=== PATIENT | male | born 1945 | race Caucasian/White ===

== ENCOUNTER → 2024-01-19 06:21 | Day surgery (SDC) | payer OTHER, SELFPAY | LOC: GI 06:21 | PROVIDERS: ATTENDING PHYSICIAN Internal Medicine; FAMILY PHYSICIAN Internal Medicine | DX: Z12.11 Encounter for screening for malignant neoplasm of colon (principal); K64.8 Other hemorrhoids; K57.30 Diverticulosis of large intestine without perforation or abscess without bleeding; K62.1 Rectal polyp; K63.5 Polyp of colon; K63.89 Other specified diseases of intestine; R12 Heartburn; K44.9 Diaphragmatic hernia without obstruction or gangrene; K22.89 Other specified disease of esophagus; K31.7 Polyp of stomach and duodenum; K31.89 Other diseases of stomach and duodenum; K21.00 Gastro-esophageal reflux disease with esophagitis, without bleeding; K29.50 Unspecified chronic gastritis without bleeding; Z86.0100 Personal history of colon polyps, unspecified | CPT/HCPCS: 45385; 45381; 45380; 43239; 88305; 88342 ==

== ENCOUNTER → 2024-05-01 13:16 | Outpatient (REF) | payer OTHER, SELFPAY | LOC: HWRAD 13:16 | PROVIDERS: ATTENDING PHYSICIAN Family Medicine; REFERRING PHYSICIAN Internal Medicine | DX: Z13.820 Encounter for screening for osteoporosis (principal); Z82.62 Family history of osteoporosis; M85.88 Other specified disorders of bone density and structure, other site | CPT/HCPCS: 77080 ==

== ENCOUNTER → 2024-07-26 09:52 | Outpatient (REF) | payer OTHER, SELFPAY | LOC: RST 09:52 | PROVIDERS: ATTENDING PHYSICIAN Internal Medicine; FAMILY PHYSICIAN Internal Medicine | DX: R19.8 Other specified symptoms and signs involving the digestive system and abdomen (principal) | CPT/HCPCS: 74230; 92611 ==

== ENCOUNTER → 2024-08-10 09:50 | Outpatient (REF) | payer OTHER, SELFPAY | LOC: RAD 09:50 | PROVIDERS: ATTENDING PHYSICIAN Internal Medicine; FAMILY PHYSICIAN Internal Medicine | DX: R10.13 Epigastric pain (principal) | CPT/HCPCS: 76700; 93975 ==

== ENCOUNTER 2025-03-10 21:34 | Observation (INO) | payer OTHER, SELFPAY ==
[2025-03-10 18:54] VITALS: BP 143/85
[2025-03-10 19:01] LABS: Glucose - Point of Care 101 mg/dl (70-99)
[2025-03-10 19:11] VITALS: BP 149/85
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
[2025-03-10 19:30] VITALS: BMI 25.1
[2025-03-10 19:34] LABS: Glucose - Point of Care 101 mg/dl (70-99)
[2025-03-10 19:36] LABS: Hematocrit 42.1 % (39.0-52.0); Hemoglobin 14.3 g/dL (13.0-18.0); Mean Corp Hgb Conc. 34.0 g/dL (33.0-37.0); Mean Corpuscular Volume 90.5 fL (80.0-94.0); Nucleated Red Blood Cells % 0 % (-); Platelet Count 293 10^3/uL (130-400); Red Cell Dist. Width 13.3 % (11.5-14.5)
[2025-03-10 19:45] LABS: INR 1.04; PT 13.7 Sec (11.4-14.6)
[2025-03-10 19:58] LABS: ALT (SGPT) 20 U/L (0-50); AST (SGOT) 28 U/L (17-59); Albumin 4.6 g/dl (3.5-5.0); Alkaline Phosphatase 92 U/L (38-126); Blood Urea Nitrogen 24 mg/dl (9-20); Calcium 9.5 mg/dl (8.4-10.2); Carbon Dioxide 28 mmol/L (22-30); Chloride 102 mmol/L (98-107); Estimated Creatinine Clearance 48 ml/min; Glucose 103 mg/dl (70-99); Potassium 4.2 mmol/L (3.5-5.1); Sodium 137 mmol/L (135-145); Total Protein 7.3 g/dl (6.3-8.2); eGFR 55.88
[2025-03-10 20:10] LABS: Troponin I < 0.012 ng/ml
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
[2025-03-10 21:44] LABS: Urine Character Clear (Clear)
[2025-03-10 21:54] LABS: Urine Red Blood Cell 0-2 /HPF (0-2); Urine Squamous Cell 0-2 /LPF (Few)
[2025-03-10 21:55] LABS: Urine White Cell 0-2 /HPF (0-5)
[2025-03-11] VITALS (11 sets, daily range): BP systolic 106–147; BP diastolic 55–86; BMI 25.0
[2025-03-11] MEDS: LIPITOR PO (02:13)
[2025-03-11 06:46] LABS: Hematocrit 40.1 % (39.0-52.0); Hemoglobin 13.7 g/dL (13.0-18.0); Mean Corp Hgb Conc. 34.2 g/dL (33.0-37.0); Mean Corpuscular Volume 90.3 fL (80.0-94.0); Platelet Count 256 10^3/uL (130-400); Red Cell Dist. Width 13.4 % (11.5-14.5)
[2025-03-11 07:09] LABS: Blood Urea Nitrogen 16 mg/dl (9-20); Calcium 7.9 mg/dl (8.4-10.2); Carbon Dioxide 23 mmol/L (22-30); Chloride 104 mmol/L (98-107); Estimated Creatinine Clearance 77 ml/min; Glucose 92 mg/dl (70-99); HDL Cholesterol 48 mg/dl; LDL Cholesterol, Calculated 69 mg/dl; Potassium 3.6 mmol/L (3.5-5.1); Sodium 135 mmol/L (135-145); Very Low Density Lipoprotein 15 mg/dl (0-30); eGFR > 60.00
[2025-03-11 08:53] LABS: Glycohemoglobin (HgbA1c) 5.8 % (4.0-5.9)
--- NOTE | 2025-03-11 09:16 | CON.NEURO ---
Addendum entered and electronically signed by Yovany Roldan MD 03/11/25 10:38:
Atorvastatin 40 mg, as ordered, also OK for choice for statin.
Original Note:
Neuro Assessment/Plan
Assessment
Ervin Stafford is a 80 yo M PMH HLD, migraines with visual aura, and prostate cancer, presenting with anterograde amnesia. He describes symptoms as about 4 hours of short-term memory loss, with otherwise no focal deficits or seizure-like activity.
On arrival he was back to his neurological baseline, with normal exam this AM (intact attention, alertness, speech, memory, orientation) . NCHCT and CTA without acute pathology.
Overall, highest on the differential is transient global amnesia (TGA), a period of transient memory loss with risk factors including migraine, primarily occurring in older adults, with characteristic hippocampal lesions on MRI. There is mixed
consensus if TGA is caused by vascular etiology (therefore presenting increased risk of stroke), however overall this has not been definitively proven. Alternative proposed TGA etiologies include venous congestion, migraines, and epileptic
phenomena. Alternatively, symptoms could be considered moderate risk TIA with ACBD2 score of 4 (assuming negative MRI). MRI will be useful in further evaluation, however would favor empirically treating with ASA 81 mg pending further evaluation.
Differential also includes seizure, which should be evaluated with EEG. If evidence of epileptiform discharges, would start empiric anti-seizure therapy, otherwise hold for now.
Plan
- START aspirin 81 mg daily
- continue simvastatin 20 mg (LDL <70 on recent check)
- BP goal normotension
- obtain MRI brain without contrast
- obtain EEG
- further evaluation pending above
Consultation
Order
Date of Consultation: 03/11/25
Requesting Provider: Aureliano
Reason for Consult: Amnesia
Subjective/Objective
Subjective Data
Date of Service: March 11, 2025
Ervin Stafford is a 80 yo M PMH HLD, migraines with visual aura, and prostate cancer, presenting with amnesia.
His last known well was 1729 on the day of arrival (03/10). Prior to that, he had his typical AM routine - working out, showering, and other typical tasks. At 1730, he became acutely confused with anterograde amnesia. He asked his 'who put up
the [place] lights' (despite personally putting them up) and forget that it was [place] time. He has no memory of the next 2-3 hours. He reports that his otherwise denied noting any convulsive activity, oral/manual automatisms, lip
smacking, eyeblinking etc, and was awake, alert and performing normal tasks. He denies substance use including cannabis; reports drinking 1 glass of wine the night prior, which is similar to his typical routine. Only new medication is a creatine
supplement.
Due to persistent symptoms, he presented to the ED (notably gave his wrong directions to the hospital). He reports he next remembers being in the CT scanner.
In terms of epilepsy risk factors, he reports normal , manager local development, denies febrile seizures, prior strokes, intracranial bleeds, tumors, neurosurgical procedures, meningitis/encephalitis, concussions/TBI, etc. He has a history
of stroke in his father, however no history of seizures. He denies ever having an episode like this before.
In terms of his migraines, he reports childhood onset of migraines with visual aura. He describes symptoms as headache preceded by visual aura 'twinkling/sparkling [place]cent [place]' that obscures his vision, primarily on the right side but occasionally
throughout his vision. His headaches have completely resolved recently, although he still continues to have isolated visual aura, more recently occurring 3 times by 2 days around 02/13. He denies headache or visual symptoms during the
amnestic episode.
Objective Data
Vital Signs
Temp Pulse Resp BP Pulse Ox
36.6 C 70 18 147/86 95
03/10/25 18:54 03/11/25 07:00 03/10/25 20:45 03/11/25 07:00 03/11/25 07:00
Lab Results
03/11/25 06:35
03/11/25 06:35
PT 13.7 Sec (11.4-14.6) 03/10/25 19:28
INR 1.04 03/10/25 19:28
Sodium 135 mmol/L (135-145) 03/11/25 06:35
Potassium 3.6 mmol/L (3.5-5.1) 03/11/25 06:35
BUN 16 mg/dl (9-20) 03/11/25 06:35
Glucose 92 mg/dl (70-99) 03/11/25 06:35
Calcium 7.9 mg/dl (8.4-10.2) L D 03/11/25 06:35
LDL Cholesterol, Calc 69 mg/dl 03/11/25 06:35
Hgb A1c 5.8
Patient Allergies
No Known Allergies Allergy (Verified 06/06/12 08:04)
NCHCT (03/10/25, personally reviewed) No acute intracranial abnormality.
CTAH&N (03/10/25, personally reviewed) No CTA evidence for high-grade stenosis or occlusion of the [place] or the arterial vasculature in the neck.
LDL Level: <70, continue statin
CVA Assessment
Onset of Stroke Symptoms
Date of onset of symptoms: 03/10/25
Time of onset of symptoms: 17:30
Date last time pt seen normal: 03/10/25
Time last time pt seen normal: 17:29
NIH Stroke Score
Level of Consciousness: 0 - Alert
LOC Questions: 0-Answers both correctly
LOC Commands: 0-Performs both correctly
Best Horizontal Gaze: 0-Normal
Visual [place]: 0=Normal, no visual loss
Facial Palsy: 0=Normal, symmetrical
Motor - Right Arm: 0=No drift 10 seconds
Motor - Left Arm: 0=No drift 10 seconds
Motor - Right Le-No drift 5 seconds
Motor - Left Le-No drift 5 seconds
Limb Ataxia: 0-Absent
Sensation: 0-Normal
Best Language: 0-No aphasia
Dysarthria: 0-Normal
Extinction and Inattention: 0-No abnormality
NIH Total Score:: 0
Tenecteplase Contraindications
Inclusion and Exclusion criteria reviewed: Yes (Not a candidate due to minor, resolved deficit )
IAT Contraindications: Imaging doesn't show large vessel occlusion as cause of stroke
Past History
Past Medical / Surgical History
Past Medical History: Other (HLD, prostate cancer, migraines with aura )
Social History
Tobacco: Non-smoker
Alcohol: Occasional
Drug: None
Living: with family
Employment: Retired
Family History
Family History: Stroke
Review of Systems
-
All other systems: Reviewed and negative
Physical Exam
-
Awake, alert, oriented to person, place, and time
Follows 1- and 2-step axial and appendicular and axial commands
Able to state days of the week forwards and backwards
Remembers 3/3 words in 5 mintues
CN II-XII intact
Intact strength and sensation bilaterally
No ataxia on FNF
No sensory neglect
Data Reviewed
-
CT-A: Report Reviewed and Image Reviewed
CT Head: Report Reviewed and Image Reviewed
Labs: Report Reviewed
Lipid Profile: Report Reviewed
Medications
-
Active Medications
Generic Name Dose Route Start Last Admin
Trade Name Freq PRN Reason Stop Dose Admin
Acetaminophen 650 mg 03/11/25 02:10
Acetaminophen 325 Mg Tablet PO 04/08/25 02:09
Q4HPRN PRN
mild pain/ROSE/temp> 100.4F
Aspirin 81 mg 03/11/25 08:00
Aspirin 81 Mg Chewable Tablet PO 04/08/25 07:59
DAILY PATRICIO
Atorvastatin Calcium 40 mg 03/11/25 02:15 03/11/25 02:13
Atorvastatin (Lipitor) 40 Mg Tablet PO 04/08/25 02:14 Not Given
QPM PATRICIO
Bisacodyl 10 mg 03/11/25 02:10
Bisacodyl 10 Mg Rectal Suppository RECTAL 04/08/25 02:09
[id number] PRN
constipation
Pantoprazole Sodium 40 mg 03/11/25 08:00
Pantoprazole 40 Mg Delayed Release Tablet PO 04/08/25 07:59
DAILY PATRICIO
Polyethylene Glycol 17 grams 03/11/25 02:10
Polyethylene Glycol Powder 17 Grams Packet PO 04/08/25 02:09
DAILYPRN PRN
constipation
Senna/Docusate Sodium 1 tablet 03/11/25 02:10
Docusate W/Senna ([place]-Colace) Tablet PO 04/08/25 02:09
BIDPRN PRN
constipation
Home Medications
�Medication �Instructions �Recorded
omeprazole 20 mg capsule,delayed 20 mg PO DAILY 02/05/11
release (Prilosec)
simvastatin 20 mg tablet 20 mg PO QPM 02/05/11
[2025-03-11] MEDS: TYLENOL 650 MG PO (10:28)
[2025-03-11] MEDS: PROTONIX 40 MG PO (10:28)
[2025-03-11] MEDS: LOW STRENGTH ASPIRIN 81 MG PO (10:28)
--- NOTE | 2025-03-11 10:58 | EDCM ---
Chart reviewed. Cm attempted to talk with pt at ED bedside to complete IA but was not able
LVM with Shahnaz [phone]
--- NOTE | 2025-03-11 17:38 | W.PN.HOSP.TC ---
Today's Communication/Plan
-
MRI brain, EEG
Assessment / Plan
Assessment / Plan
80M with HLD, ocular migraines p/w confusion episode.
Acute confusional state�resolved
Possible transient global amnesia. Rule out toxic metabolic encephalopathy, TIA, migraine.
CTh, CT HN and R WNL
Leukocytosis resolved, UA negative, no evidence of any infection
MRI brain pending
Neuro consult, discussed with Dr. Roldan, EEG ordered and pending
HLD
Statin
Mild hypocalcemia
Calcium supplement
GERD
PPI
DVT PPx
SCDs/ambulation
Anticipated Discharge: Within 24 hours
Subjective/Interval History
-
Date of Service: March 11, 2025
Patient feeling well, denies any acute issues. He has no weakness was able to ambulate to bathroom and back, no vision issues. He does not remember what happened between getting out of the shower and waking up in CT scan. He denies recent illness
or any prodromal symptoms or any recent lightheadedness.
Objective Data
-
Labs:
Laboratory Results
03/11/25
06:35
WBC 6.8
Hgb 13.7
Hct 40.1
Plt Count 256
Sodium 135
Potassium 3.6
Chloride 104
Carbon Dioxide 23
BUN 16
Creatinine 0.8
Glucose 92
Calcium 7.9 L D
Vital Signs:
Vital Signs
Temp Pulse Resp BP Pulse Ox
98.7 F 71 16 113/65 97
03/11/25 15:55 03/11/25 15:55 03/11/25 15:55 03/11/25 15:55 03/11/25 15:55
Review of Systems
-
History Source: Patient
All other systems: Reviewed and negative
Physical Exam
-
General: No Apparent Distress
HEENT: Moist Mucous Membranes, Anicteric and PERRLA
Respiratory: Clear to Auscultation; Negative Wheezes, Rales or Rhonchi
Cardiac: Regular Rhythm and S1/S2; Negative Murmur, Rub or Gallop
GI: Soft, Nontender, Nondistended and Normal Bowel Sounds
Musculoskeletal: No Edema
Skin: Warm and Dry; Negative Rash, Ulcers or Lesions
Neuro: Awake, AO x 3, No Motor Deficits, Nonfocal/Grossly Intact and Central Nerve's Intact
Hematologic / Lymphatic: No Lymphadenopathy
Psych: Calm
Data Reviewed
-
CT Scan: Report Reviewed by me and Discussed with Patient
Labs: Labs Reviewed by me and Discussed with Patient
[2025-03-11] MEDS: LIPITOR 40 MG PO (17:47)
[2025-03-12 03:20] VITALS: BP 105/56
[2025-03-12 07:30] VITALS: BP 126/71
[2025-03-12] MEDS: LOW STRENGTH ASPIRIN 81 MG PO (08:10)
[2025-03-12] MEDS: PROTONIX 40 MG PO (08:10)
[2025-03-12 11:45] VITALS: BP 121/73
--- NOTE | 2025-03-12 12:08 | W.PN.HOSP.TC ---
Today's Communication/Plan
-
expect DC post EEG
Assessment / Plan
Assessment / Plan
80M with HLD, ocular migraines p/w confusion episode.
Acute confusional state�resolved
suspected TGA
MRI Brain without acute abnormality
EEG ordered - discussed with Neuro, if normal then OK for DC home
HLD
Statin
Mild hypocalcemia
Calcium supplement
GERD
PPI
DVT PPx
SCDs/ambulation
Anticipated Discharge: Within 24 hours
Subjective/Interval History
-
Date of Service: March 12, 2025
memory back to normal - started to return on Wednesday
Objective Data
-
Vital Signs:
Vital Signs
Temp Pulse Resp BP Pulse Ox
98.0 F 65 16 121/73 99
03/12/25 11:45 03/12/25 11:45 03/12/25 11:45 03/12/25 11:45 03/12/25 11:45
I&O
03/11/25 03/12/25 03/13/25
06:59 06:59 06:59
Intake Total 300 / 300
Balance 300 / 300
Review of Systems
-
History Source: Patient
All other systems: Reviewed and negative
Physical Exam
-
General: No Apparent Distress
HEENT: Moist Mucous Membranes, Anicteric and PERRLA
Respiratory: Clear to Auscultation; Negative Wheezes, Rales or Rhonchi
Cardiac: Regular Rhythm and S1/S2; Negative Murmur, Rub or Gallop
GI: Soft, Nontender, Nondistended and Normal Bowel Sounds
Musculoskeletal: No Edema
Skin: Warm and Dry; Negative Rash, Ulcers or Lesions
Neuro: Awake, AO x 3, No Motor Deficits, Nonfocal/Grossly Intact and Central Nerve's Intact
Hematologic / Lymphatic: No Lymphadenopathy
Psych: Calm
Data Reviewed
-
Diagnostic Radiology: Report Reviewed by me
Labs: Labs Reviewed by me
--- NOTE | 2025-03-12 15:18 | EEG.RPT ---
Electroencephalogram Report
Recording
Date of EE03/12/25
Type of EEG: Routine
Length of EEG recordin minutes
Done with Video Recording: No
Patient Status: Inpatient
Recording Conditions: Awake and Drowsy
Hyperventilation Performed: No
Photic Stimulation Performed: Yes
Report
LESS THAN 1 HOUR EEG REPORT
EEG INTERPRETATION:
Unremarkable EEG for age
CLINICAL CORRELATION:
A normal EEG does not rule out a diagnosis of epilepsy. If clinical suspicion for seizure persists, a prolonged recording may be warranted.
Clinical correlation is advised.
METHODS:
A 21 channel digitized electroencephalogram (EEG) was performed using the 10/20 international system of electrode placement and one-lead of ECG recorded. Video was recorded. Persyst quantitative EEG analysis was performed.
ELECTROENCEPHALOGRAPHER IMPRESSION(S):
Quality of study
Good
Background
There was an unremarkable anterior-posterior voltage gradient of alpha frequency.
With eye opening the background activity changed to a low voltage mixture of frequencies.
There were no significant asymmetries of background activity noted.
Sleep
Drowsiness present
Photic Stimulation
No driving
ECG
Normal sinus rhythm
--- NOTE | 2025-03-12 15:55 | W.DS.TRANS ---
DC Summary - Joiner
-
Discharge Instructions:
Discharge Diagnosis/Procedures transient Global Amnesia
Diet Regular
Activity As tolerated
Driving Restrictions As prior to admission
Bathing Restrictions None
Instructions:
Stand-Alone Forms:
Changes to Home Medications: Yes
Discharge Medications:
DC Medications w/original date entered in [employer]
omeprazole 20 mg capsule,delayed release (Prilosec) 20 mg PO DAILY 02/05/11
simvastatin 20 mg tablet 20 mg PO QPM 02/05/11
aspirin 81 mg chewable tablet 81 mg PO DAILY #30 tabs 03/12/25
Home Medication Changes
addition of aspirin daily
Pending Results: No
[2025-03-12 15:58] VITALS: BP 125/74
--- NOTE | 2025-03-12 16:04 | W.DCSUMMARY ---
Discharge Summary
Discharge Data
Date of Admission: 03/10/25
Date of Discharge: 03/12/25
-
Pending Results: No
Hospital Course
Discharging Physician : Dr. Justine Padilla
Disposition : Home
Primary care physician : Dr. Yuri Griffith
Principal Discharge diagnosis : transient global amnesia
Hospital Course :
Mr. Ervin Stafford is a 80 yo man with hx HLD, GERD, prostate cancer presents to the ER with acute confusion. Patient didn't remember why [place] decorations were up or things from earlier in the day. Triage vitals stable. Labs with mild
leukocytosis. Head CT without acute abnormality and CTA without evidence of high grade stenosis or occlusion. Patient was admitted to medicine with Neurology consulted. His memory started to return on day of admission. MRI without acute event
and patient's memory is back to normal. Suspected TGA. EEG read normal. Patient is discharged home. Low dose aspirin recommended by Neurology.
Time spent on discharge was 31 minutes.
Important imaging findings :
Head CT
IMPRESSION:
No acute intracranial abnormality.
Head/Neck CTA
IMPRESSION:
No CTA evidence for high-grade stenosis or occlusion of the [place] or the arterial vasculature in the neck.
Brain MRI
IMPRESSION:
No acute intracranial abnormality.
Procedure findings :
Discharge Plan
-
Patient Disposition: Home (Routine Discharge)
Discharge Diagnosis/Procedures: transient Global Amnesia
Diet: Regular
Activity: As tolerated
Driving Restrictions: As prior to admission
Bathing Restrictions: None
Referrals:
Yuri Griffith I., DO [Family Provider, Internal Medicine] - in less than 1 week
Yovany Roldan MD [Active, Neurology]
Additional Discharge Medication Instructions: You are started on aspirin 81mg daily. Discuss with your outpatient physicians if this should be continued.
Prescriptions:
New
aspirin 81 mg Tablet,Chewable
81 mg PO DAILY Qty: 30 0RF
Continued
simvastatin 20 MG tablet
20 mg PO QPM
omeprazole [Prilosec] 20 MG capsule,delayed release(DR/EC)
20 mg PO DAILY
Discharge Orders:
Discharge Patient (As Directed); Ordered 03/12/25
Ordered By: Justine Padilla
Discharge Date and Time
Print Language: MACEDONIAN
== END 2025-03-12 16:24 | disposition home or self-care (01) ==
LOC: 4 WEST ACU 21:34
PROVIDERS: Registered Nurse; ADMITTING PHYSICIAN Internal Medicine; ATTENDING PHYSICIAN Student in an Organized Health Care Education/Training Program; CONSULT PHYSICIAN Student in an Organized Health Care Education/Training Program; EMERGENCY PHYSICIAN Emergency Medicine; FAMILY PHYSICIAN Internal Medicine
DX: G45.4 Transient global amnesia (principal); E83.51 Hypocalcemia; G43.109 Migraine with aura, not intractable, without status migrainosus; I10 Essential (primary) hypertension; E78.5 Hyperlipidemia, unspecified; K21.9 Gastro-esophageal reflux disease without esophagitis; Z79.82 Long term (current) use of aspirin; Z79.899 Other long term (current) drug therapy; Z85.46 Personal history of malignant neoplasm of prostate; Z82.3 Family history of stroke
CPT/HCPCS: 70450; 70496; 70498; 70551; 80048; 80053; 80061; 81003; 81015; 82962; 83036; 84484; 85025; 85027; 85610; 93005; 95816; 99285; G0378; Q9967